=== PATIENT | male | born 1955 | race African-American/Black ===

== ENCOUNTER 2017-01-02 17:26 | Inpatient (IN) | payer BC ==
[~2017-01-02] VITALS: Ht 165.1 cm; Wt 61.2 kg
[2017-01-02 18:33] LABS: CHLORIDE 106 mEq/L (99-109); POTASSIUM 3.6 mEq/L (3.7-5.4); SODIUM 139 mEq/L (136-147)
[2017-01-02 18:35] LABS: GLUCOSE 96 mg/dL (70-99)
[2017-01-02 18:37] LABS: ANION GAP 9 MEQ/L (2-14); TOTAL BILIRUBIN 0.1 mg/dL (0.0-1.0)
[2017-01-02 18:39] LABS: ALKALINE PHOSPHATASE 77 IU/L (3-129); GFR ESTIMATE (CALCULATED) > 59 mL/min/
[2017-01-02 18:40] LABS: UREA NITROGEN (BUN) 10 mg/dL (9-23)
[2017-01-02 18:41] LABS: DIRECT BILIRUBIN 0.1 mg/dL (0.0-0.3)
[2017-01-02 18:42] LABS: EOSINOPHIL (%) 4.6 % (0-5); EOSINOPHIL COUNT 0.4 K/uL (0-0.3); HEMATOCRIT 25.1 % (38.0-50.0); IMMATURE GRANULOCYTE (%) 1.2 % (0.0-0.7); IMMATURE GRANULOCYTE COUNT 0.1 K/uL; INSTRUMENT ABS NEUTROPHIL CT 6.1 K/uL; LIPASE 29 U/L (1.0-51.0); LYMPHOCYTE COUNT 1.2 K/uL (1.0-2.8); MCH 16.3 PG (29.0-34.0); MCHC 27.1 G/DL (30.0-36.0); MCV 60.3 FL (86-99); MEAN PLAT.VOLUME 9.1 uM^3 (9.0-12.4); MONOCYTE (%) 6.9 % (3-12); MONOCYTE COUNT 0.6 K/uL (0-0.8); NEUTROPHIL (%) 72.6 % (45-76); NEUTROPHIL COUNT 6.1 K/uL (1.8-6.4); PLATELET COUNT 338 K/uL (156-360); RBC DIS.WIDTH-CV 19.3 % (11.8-14.6); RBC DIS.WIDTH-SD 40.6 % (39-53); RED BLOOD COUNT 4.16 M/uL (4.00-5.50); WHITE BLOOD COUNT 8.4 K/uL (4.1-10.2)
[2017-01-02 18:46] LABS: TROP-I INTERPRETATION NEGATIVE; TROPONIN-I < 0.01 ng/mL (0.0-0.30)
[2017-01-02 19:28] LABS: INTER. NORMALIZED RATIO 1.1; PROTHROMBIN TIME 10.7 (9.2-11.2); PTT 21.6 (25-32)
[2017-01-02] MEDS ORDERED: METOPROLOL TART25 MG PO (20:07)
[2017-01-02] MEDS ORDERED: TAMSULOSIN HCL0.4 MG PO (20:07)
[2017-01-02] MEDS ORDERED: LO-DOSE ASPIRIN81 M2 PO (20:07)
[2017-01-02 22:12] VITALS: BP 119/71
[2017-01-02 22:30] VITALS: BP 110/67
[2017-01-02 22:34] LABS: HEMATOCRIT 22.5 % (38.0-50.0); MCH 16.4 PG (29.0-34.0); MCHC 27.6 G/DL (30.0-36.0); MCV 59.7 FL (86-99); MEAN PLAT.VOLUME 9.3 uM^3 (9.0-12.4); PLATELET COUNT 306 K/uL (156-360); RBC DIS.WIDTH-CV 19.1 % (11.8-14.6); RBC DIS.WIDTH-SD 39.6 % (39-53); RED BLOOD COUNT 3.77 M/uL (4.00-5.50); WHITE BLOOD COUNT 9.7 K/uL (4.1-10.2)
[2017-01-02 23:30] VITALS: BP 106/70
[2017-01-02 23:40] VITALS: BP 106/70
[2017-01-03] VITALS (18 sets, daily range): BP systolic 106–196; BP diastolic 64–73
[2017-01-03 01:18] LABS: TROP-I INTERPRETATION NEGATIVE; TROPONIN-I < 0.01 ng/mL (0.0-0.30)
[2017-01-03 05:52] LABS: TROP-I INTERPRETATION NEGATIVE; TROPONIN-I < 0.01 ng/mL (0.0-0.30)
[2017-01-03 09:18] LABS: HEMATOCRIT 29.8 % (38.0-50.0)
[2017-01-03 14:01] LABS: INTERNAL CONTROL VALID? YES
[2017-01-03 14:42] LABS: C DIFF TOXIN NEGATIVE (NEGATIVE)
[2017-01-03 14:43] LABS: PROBE CHECK PASS; SPECIMEN PROCESSING CONTROL PASS
[2017-01-03 20:32] LABS: HEMATOCRIT 31.3 % (38.0-50.0); MCV 66.2 FL (86-99)
[2017-01-04 03:45] VITALS: BP 128/70
[2017-01-04 06:16] LABS: HEMATOCRIT 30.6 % (38.0-50.0); MCHC 30.4 G/DL (30.0-36.0); MCV 66.8 FL (86-99); MEAN PLAT.VOLUME 9.6 uM^3 (9.0-12.4); PLATELET COUNT 271 K/uL (156-360); RBC DIS.WIDTH-CV 26.5 % (11.8-14.6); RBC DIS.WIDTH-SD 60.2 % (39-53); WHITE BLOOD COUNT 7.3 K/uL (4.1-10.2)
[2017-01-04 06:19] LABS: ANION GAP 11 MEQ/L (2-14); C-REACTIVE PROTEIN 28.8 MG/L (0-10); CHLORIDE 107 MEQ/L (99-109); GFR ESTIMATE (CALCULATED) > 59 mL/min/; GLUCOSE 133 mg/dL (70-99); POTASSIUM 4.1 MEQ/L (3.7-5.4); SAMPLE HEMOLYSIS CHECK 0; SAMPLE ICTERIC CHECK 0; SAMPLE LIPEMIA CHECK 0; SODIUM 139 MEQ/L (136-147); UREA NITROGEN (BUN) 9 mg/dL (9-23)
[2017-01-04 06:39] LABS: MCH 20.3 PG (29.0-34.0); RED BLOOD COUNT 4.58 M/uL (4.00-5.50)
[2017-01-04 07:37] VITALS: BP 132/78
[2017-01-04 08:27] LABS: ERTH.SED.RATE 124 MM/HR (0-20)
[2017-01-04 12:00] VITALS: BP 155/82
[2017-01-04 15:57] VITALS: BP 173/91
[2017-01-04 19:45] VITALS: BP 145/87
[2017-01-04 20:16] LABS: HEMATOCRIT 32.2 % (38.0-50.0)
[2017-01-04 22:26] VITALS: BP 166/82
[2017-01-05 03:36] VITALS: BP 165/83
[2017-01-05 05:37] LABS: HEMATOCRIT 31.4 % (38.0-50.0); MCH 20.3 PG (29.0-34.0); MCHC 30.6 G/DL (30.0-36.0); MCV 66.4 FL (86-99); MEAN PLAT.VOLUME 9.7 uM^3 (9.0-12.4); PLATELET COUNT 323 K/uL (156-360); RBC DIS.WIDTH-CV 26.4 % (11.8-14.6); RBC DIS.WIDTH-SD 59.8 % (39-53); RED BLOOD COUNT 4.73 M/uL (4.00-5.50); WHITE BLOOD COUNT 11.7 K/uL (4.1-10.2)
[2017-01-05 07:58] VITALS: BP 155/87
[2017-01-05] MEDS ORDERED: DELZICOL400 M1 PO (08:42)
[2017-01-05] MEDS ORDERED: CIPRO500 MG PO (08:42)
[2017-01-05] MEDS ORDERED: FLAGYL500 MG PO (08:42)
[2017-01-05] MEDS ORDERED: PREDNISONE10 MG PO (08:42)
== END 2017-01-05 14:15 | disposition home or self-care (01) | DRG 386 ==
LOC: EME 17:26 → EDBD 17:26 → EDOF 20:29 → 4EAST 20:29
PROVIDERS: Emergency Medicine; Hospitalist; Internal Medicine Gastroenterology
PROC: 30233N1 Transfusion of Nonautologous Red Blood Cells into Peripheral Vein, Percutaneous Approach (ICD-10-PCS; principal; 2017-01-02)
DX: K50.111 Crohn's disease of large intestine with rectal bleeding (principal); D62 Acute posthemorrhagic anemia; I10 Essential (primary) hypertension; D50.0 Iron deficiency anemia secondary to blood loss (chronic); R32 Unspecified urinary incontinence; E78.5 Hyperlipidemia, unspecified; E86.9 Volume depletion, unspecified; I20.8 Other forms of angina pectoris; K64.4 Residual hemorrhoidal skin tags; S01.511A Laceration without foreign body of lip, initial encounter; Z87.891 Personal history of nicotine dependence; Z79.82 Long term (current) use of aspirin; R41.82 Altered mental status, unspecified; R55 Syncope and collapse; W18.39XA Other fall on same level, initial encounter; Y93.89 Activity, other specified; Y92.59 Other trade areas as the place of occurrence of the external cause
CPT/HCPCS: 71020; 74177; 80048; 80069; 80076; 82272; 83630; 83690; 84484; 85014; 85018; 85025; 85027; 85610; 85651; 85730; 86140; 86900; 86901; 86920; 87493; 87506; 93005; 99202; 99281; 99285; C9113; G0480; J0744; J1170; J1940; J2270; J2930; J7030; P9016; S0030